=== PATIENT | female | born 1975 | race Caucasian/White ===

== ENCOUNTER 2022-02-10 09:53 | Emergency (ER) | payer SELFPAY ==
[~2022-02-10] VITALS: Ht 160 cm; Wt 54.4 kg
[2022-02-10 10:02] VITALS: BP 140/79
--- NOTE | 2022-02-10 10:27 | NUR ---
46 Y/O BIB SELF C/O WHITISH, GEL-LIKE, FOUL SMELLING VAGINAL DISCHARGE X 2 MOS. PT REPORTS "SHE MAY HAVE A TAMPON STUCK IN HER VAGINA". PT REPORTS DYSURIA X 1 WK. PT DENIES VAGINAL BLEEDING/HEMATURIA. PT DENIES FEVER,CHILLS. PT DENIES TAKING ANY MEDICATION PRIOR TO ARRIVAL. PT IS ALERT AND ORIENTED X4. BED IN LOWEST POSITION. SIDE RAILS X1. PMH: ARTEROSCLEROSIS MEDS: NONE NKA
[2022-02-10 10:33] LABS: APPEARANCE,URINE CLEAR (CLEAR); BILIRUBIN,URINE NEGATIVE (NEGATIVE); BLOOD, URINE TRACE-I (NEGATIVE); COLOR,URINE YELLOW (YELLOW); LEUKOCYTE ESTERASE ,URINE 2+ (NEGATIVE); NITRITE, URINE NEGATIVE (NEGATIVE); PH,URINE 6.5 (5.0-9.0); UGLUCOSE NEGATIVE (NEGATIVE)
--- NOTE | 2022-02-10 10:47 | NUR ---
AT PT BEDSIDE
[2022-02-10 11:06] LABS: RBC,URINE 0-5 /HPF (0-5)
[2022-02-10 11:08] LABS: WBC,URINE 0-5 /HPF (0-5)
[2022-02-10 11:09] LABS: CALCIUM OXALATE CRYSTALS,UR None Seen /HPF (None Seen); COARSE GRANULAR CASTS,URINE None Seen /LPF (None Seen); FINE GRANULAR CASTS,URINE None Seen /LPF (None Seen); HYALINE CASTS, URINE None Seen /LPF (None Seen); OTHER CASTS, URINE None Seen /LPF (None Seen); OTHER CRYSTALS,URINE None Seen /HPF (None Seen); RED BLOOD CELL CASTS,URINE None Seen /LPF (None Seen); TRICHOMONAS,URINE None Seen /HPF (None Seen); TRIPLE PHOSPHATE CRYSTAL,UR None Seen /HPF (None Seen); URIC ACID CRYSTALS,URINE None Seen /HPF (None Seen); URINE AMORPHOUS URATE None Seen /HPF (None Seen); WAXY CASTS,URINE None Seen /LPF (None Seen); YEAST,URINE None Seen /HPF (None Seen)
--- NOTE | 2022-02-10 12:05 | NUR ---
CULTURES WALKED TO LAB AND HANDED TO TRESA
[2022-02-10] MEDS ORDERED: DOXY-690 PO (13:19)
[2022-02-10] MEDS ORDERED: METR-435 PO (13:19)
[2022-02-10] MEDS ORDERED: FLUCONAZOLE 100 MG TAB PO ONE (13:20)
[2022-02-10] MEDS ORDERED: cefTRIAXone 500 MG in LIDOCAINE MPF 1% 1 ML IM ONE (13:20)
[2022-02-10] MEDS ORDERED: cefTRIAXone 500 MG VIAL ONE (13:35)
[2022-02-10] MEDS ORDERED: LIDOCAINE MPF 1% 5 ML ONE (13:35)
[2022-02-10 13:51] VITALS: BP 140/79
--- NOTE | 2022-02-10 13:53 | NUR ---
Patient discharged with v/s stable. Written and verbal after care instructions given and explained. Patient alert, oriented and verbalized understanding of instructions. Ambulatory with steady gait. All questions addressed prior to discharge. ID band removed. Patient advised to follow up with PMD. Rx of DOXYCYCLINE, METRONIDAZOLE given. Patient educated on indication of medication including possible reaction and side effects. Opportunity to ask questions provided and answered.
--- NOTE | 2022-02-10 15:47 | NUR ---
LATE ENTRY POSITIVE WET MOUNT RESULT RECEIVED FROM LAB. TREATMENT APPROPRIATE PER DR. CONROY, COPY OF DISCREPENCY LOG SENT TO INFECTION CONTROL AND PLACED IN BINDER.
== END 2022-02-10 13:53 | disposition home or self-care (01) ==
LOC: MED 09:53
DX: N72 Inflammatory disease of cervix uteri (principal); Z98.890 Other specified postprocedural states
CPT/HCPCS: 74176; 81001; 81025; 87086; 87205; 87210; 96372; 99284; J0696; J2001